=== PATIENT | male | born 1950 | race Caucasian/White ===

== ENCOUNTER 2021-10-08 15:59 | Inpatient (IN) | payer MEDICARE ==
[2021-10-08] MEDS ORDERED: Ondansetron PF 4 MG/2 ML Vial IVP PRN (21:57)
[2021-10-08 22:43] VITALS: BMI 29.9
[2021-10-08] MEDS: Heparin 10,000 UNITS/ 10 ML VIAL SLOW IVP SCH (23:52)
[2021-10-08] MEDS: Heparin 25,000 units/D5W 500 ML IVPB SCH (23:52)
[2021-10-09] MEDS: Nitroglycerin 0.4 MG TAB (25 Tab Bottle) SL PRN ×2 (01:10→01:16)
[2021-10-09] MEDS: Nitroglycerin 2% Ointment 1 INCH/1 GM Packet TOP SCH ×3 (01:37→18:02)
[2021-10-09] MEDS ORDERED: Communication Order-Pharmacy FS SCH (07:43)
[2021-10-09] MEDS ORDERED: Morphine 2 MG/ML VIAL SLOW IVP PRN (07:44)
[2021-10-09 07:49] LABS: #Eosinphils 0.2 thou/uL (0.0-0.7); #Lymphocytes 1.7 thou/uL (1.20-3.40); #Monocytes 0.9 thou/uL (0.11-0.59); #Neutrophils 6.3 thou/uL (1.40-6.50); %Basophils 0.4 % (0.0-1.0); %Eosinophils 1.8 % (0.0-10.0); %Lymphocytes 18.6 % (21.0-51.0); %Monocytes 9.5 % (0.0-10.0); %Neutrophils 69.8 % (42.0-75.0); Hemoglobin 13.8 g/dL (14.0-18.0); Mean Corpuscular HGB CONC 33.6 g/dL (32.0-36.0); Mean Corpuscular Hemoglobin 33.8 pg (27.0-31.0); Mean Platelet Volume 9.4 fL (7.4-10.4); Platelet Count 149 thou/uL (130-400); RBC Distribution Width 11.6 % (11.5-14.5); Red Blood Cell (RBC) Count 4.08 mill/uL (4.70-6.10); White Blood Cell (WBC) Count 9.1 thou/uL (4.8-10.8)
[2021-10-09] MEDS: Acetaminophen 325 MG TAB PO PRN ×3 (07:49→21:10)
[2021-10-09 08:11] LABS: Anion Gap 12 mmol/L (10-20); BUN (Urea Nitrogen) 15 mg/dL (8.4-25.7); Calc. Creatinine Clearance 91 mL/min (70-130); Calcium 9.2 mg/dL (7.8-10.44); Carbon Dioxide 28 mmol/L (23-31); Chloride 104 mmol/L (98-107); Cholesterol 239 mg/dl (< 200 Desired); Estimated GFR 76; Glucose 107 mg/dL (83-110); HDL Cholesterol 40 mg/dL (>60 Neg Risk); LDL Cholesterol, Calculated 152 mg/dL; Potassium 4.5 mmol/L (3.5-5.1); Sodium 139 mmol/L (136-145); Triglycerides 236 mg/dL (Less than 150)
[2021-10-09] MEDS: Heparin 10,000 UNITS/ 10 ML VIAL SLOW IVP SCH (09:07)
[2021-10-09] MEDS ORDERED: Aspirin 81 mg Enteric Coated Tablet PO SCH (10:15)
[2021-10-09 15:48] LABS: PTT 76.1 sec (22.9-36.1)
[2021-10-09] MEDS ORDERED: Atorvastatin Calcium 40 MG TAB PO SCH (21:00)
[2021-10-09] MEDS: Heparin 25,000 units/D5W 500 ML IVPB SCH (21:10)
[2021-10-09 22:18] LABS: Prothrombin Time 13.1 sec (12.0-14.7)
[2021-10-09 22:20] LABS: PTT 84.4 sec (22.9-36.1)
[2021-10-10] MEDS: Nitroglycerin 2% Ointment 1 INCH/1 GM Packet TOP SCH ×2 (02:47→07:49)
[2021-10-10 04:48] LABS: #Basophils 0.1 thou/uL (0.0-0.2); #Eosinphils 0.2 thou/uL (0.0-0.7); #Lymphocytes 2.4 thou/uL (1.20-3.40); #Monocytes 0.7 thou/uL (0.11-0.59); #Neutrophils 4.8 thou/uL (1.40-6.50); %Basophils 0.8 % (0.0-1.0); %Eosinophils 2.1 % (0.0-10.0); %Lymphocytes 29.2 % (21.0-51.0); %Neutrophils 58.9 % (42.0-75.0); Hemoglobin 13.3 g/dL (14.0-18.0); Mean Corpuscular HGB CONC 34.2 g/dL (32.0-36.0); Mean Corpuscular Hemoglobin 34.7 pg (27.0-31.0); Mean Platelet Volume 9.5 fL (7.4-10.4); Platelet Count 147 thou/uL (130-400); RBC Distribution Width 11.7 % (11.5-14.5); Red Blood Cell (RBC) Count 3.84 mill/uL (4.70-6.10); White Blood Cell (WBC) Count 8.2 thou/uL (4.8-10.8)
[2021-10-10 04:53] LABS: Prothrombin Time 13.1 sec (12.0-14.7)
[2021-10-10 04:55] LABS: PTT 104.5 sec (22.9-36.1)
[2021-10-10 05:09] LABS: Anion Gap 13 mmol/L (10-20); BUN (Urea Nitrogen) 16 mg/dL (8.4-25.7); Calc. Creatinine Clearance 101 mL/min (70-130); Calcium 9.2 mg/dL (7.8-10.44); Carbon Dioxide 27 mmol/L (23-31); Chloride 104 mmol/L (98-107); Estimated GFR 86; Glucose 91 mg/dL (83-110); Sodium 140 mmol/L (136-145)
[2021-10-10] MEDS ORDERED: PHENYLEPHRINE-NS 100 MCG/ML 10 ML SYRINGE ONE ×2 (07:13→08:02)
[2021-10-10] MEDS ORDERED: Albumin 5% 500 ML ONE (07:14)
[2021-10-10] MEDS ORDERED: fentaNYL Citrate/PF 100 MCG/2 ML SYRINGE ONE (08:01)
[2021-10-10] MEDS ORDERED: Midazolam HCl 5 mg/5 ml Vial ONE (08:01)
[2021-10-10] MEDS ORDERED: Phenylephrine 10 MG/ML VIAL ONE (08:02)
[2021-10-10] MEDS ORDERED: Aspirin 81 mg Enteric Coated Tablet PO SCH (09:00)
[2021-10-10] MEDS ORDERED: Heparin 10,000 UNITS/1 ML VIAL 30,000 UNITS in Sodium Chloride 0.9% 1,000 ML FS SCH (09:00)
[2021-10-10] MEDS ORDERED: Sodium Chloride 0.9% 100 ML ONE (09:34)
[2021-10-10] MEDS ORDERED: CEFAZOLIN 2 GM VIAL ONE (09:34)
[2021-10-10] MEDS ORDERED: Magnesium Sulfate 1 GM/2 ML VIAL ONE (09:40)
[2021-10-10] MEDS ORDERED: Sodium Bicarb 50 MEQ/50 ML Abboject 8.4% SYRINGE ONE (09:40)
[2021-10-10] MEDS ORDERED: Calcium Chloride 1 GM/10 ML Abboject SYRINGE ONE (09:40)
[2021-10-10] MEDS ORDERED: Cardioplegic Soln 1,000 ML BAG ONE (09:40)
[2021-10-10] MEDS ORDERED: Protamine Sulfate 250 MG/25 ML VIAL ONE (09:40)
[2021-10-10] MEDS ORDERED: Heparin 30,000 units/30 ml VIAL ONE (09:40)
[2021-10-10] MEDS ORDERED: Lidocaine 1% PF 5 ML VIAL ONE (09:40)
[2021-10-10] MEDS ORDERED: Rocuronium Bromide 10 MG/ML (10ML VIAL) ONE (09:40)
[2021-10-10] MEDS ORDERED: Mannitol 12.5 GM/50 ML ONE (09:40)
[2021-10-10] MEDS ORDERED: Vecuronium 10 MG VIAL ONE (09:40)
[2021-10-10] MEDS ORDERED: Papaverine 60 MG/2 ML VIAL ONE (09:40)
[2021-10-10] MEDS ORDERED: PROPOFOL 200 MG/20 ML VIAL ONE (09:40)
[2021-10-10] MEDS ORDERED: Thrombin 5000 UNITS/5 ML VIAL ONE (09:40)
[2021-10-10] MEDS ORDERED: Heparin 5,000 UNITS/ML VIAL ONE (09:40)
[2021-10-10] MEDS ORDERED: Aminocaproic Acid 5 GM/20 ML VIAL ONE (09:40)
[2021-10-10] MEDS ORDERED: Lidocaine 2% PF 100 mg/5 ml Syringe ONE (09:40)
[2021-10-10 11:06] LABS: Actual Bicarbonate (HCO3a) 24.5 mEq/L (22-28); Base Excess (BEa) -0.2 mEq/L (-2.0 to +3.0); CO2 Tension 40.1 mmHg (35.0-45.0); Calcium, Ionized (arterial) 1.18 mmol/L (1.12-1.30); Carboxyhemoglobin (COHb) 0.5 gm% (0.0-3.0); Hemoglobin (Hb) 13.4 g/dL (14.0-18.0); O2 Tension (PaO2), arterial 260.6 mmHg (> 70.0); Potassium - ABG Lab 3.96 mmol/L (3.70-5.30); Puncture Site Arterial Line
[2021-10-10] MEDS ORDERED: niCARdipine 25 MG/10 ML VIAL ONE (11:23)
[2021-10-10] MEDS ORDERED: ceFAZolin 2 GM/Dextrose 50 ML 2 GM in Premix Bag 1 BAG IVPB SCH (13:39)
[2021-10-10] MEDS ORDERED: Nitroglycerin 50 MG/250 ML BOT 250 ML IVPB PRN (13:39)
[2021-10-10] MEDS ORDERED: Mag-Al 1200 mg/1200 mg/30 ML UDCUP PO PRN (13:39)
[2021-10-10] MEDS ORDERED: Bisacodyl 5 MG TAB PO PRN (13:39)
[2021-10-10] MEDS ORDERED: Bisacodyl 10 MG SUPP PR PRN (13:39)
[2021-10-10] MEDS ORDERED: Hetastarch 6% 500 ML 500 ML IVPB PRN (13:39)
[2021-10-10] MEDS ORDERED: Potassium Chloride 20 MEQ/100 ML PREMIX BAG IVPB PRN (13:39)
[2021-10-10] MEDS ORDERED: Acetaminophen 325 MG TAB PO PRN (13:39)
[2021-10-10] MEDS ORDERED: NOREPINEPHRINE 8 MG/250 ML-D5W 250 ML IVPB PRN (13:39)
[2021-10-10] MEDS ORDERED: DOPamine 400 MG/D5W 250 ML 250 ML IVPB PRN (13:39)
[2021-10-10] MEDS ORDERED: Morphine 2 MG/ML VIAL SLOW IVP PRN (13:39)
[2021-10-10] MEDS ORDERED: Fentanyl 100 MCG/2 ML VIAL SLOW IVP PRN (13:39)
[2021-10-10] MEDS ORDERED: niCARdipine 25 MG in Sodium Chloride 0.9% 250 ML 250 ML IVPB PRN (13:39)
[2021-10-10] MEDS ORDERED: Post-Op Insulin Drip Protocol IVPB ONE (13:39)
[2021-10-10] MEDS ORDERED: Guaifenesin DM 100-10/5 ML UDCUP PO PRN (13:39)
[2021-10-10] MEDS ORDERED: Ondansetron PF 4 MG/2 ML Vial IVP PRN (13:39)
[2021-10-10] MEDS ORDERED: hydrALAZINE 20 MG/ML VIAL SLOW IVP PRN (13:39)
[2021-10-10] MEDS ORDERED: Albumin 5% 250 ML ONE ×2 (13:42→13:44)
[2021-10-10] MEDS: Lactated Ringer's 1,000 ML IV SCH ×2 (13:45→23:53)
[2021-10-10 13:48] LABS: #Basophils 0.1 thou/uL (0.0-0.2); #Eosinphils 0.1 thou/uL (0.0-0.7); #Lymphocytes 1.6 thou/uL (1.20-3.40); #Monocytes 0.9 thou/uL (0.11-0.59); %Basophils 0.4 % (0.0-1.0); %Eosinophils 0.4 % (0.0-10.0); %Lymphocytes 9.2 % (21.0-51.0); %Monocytes 5.3 % (0.0-10.0); %Neutrophils 84.7 % (42.0-75.0); Hemoglobin 12.4 g/dL (14.0-18.0); Mean Corpuscular HGB CONC 33.5 g/dL (32.0-36.0); Mean Corpuscular Hemoglobin 34.2 pg (27.0-31.0); Mean Platelet Volume 9.1 fL (7.4-10.4); Platelet Count 112 thou/uL (130-400); RBC Distribution Width 11.7 % (11.5-14.5); Red Blood Cell (RBC) Count 3.62 mill/uL (4.70-6.10); White Blood Cell (WBC) Count 17.8 thou/uL (4.8-10.8)
[2021-10-10] MEDS ORDERED: DOPamine 400 MG/D5W 250 ML 250 ML ONE (13:49)
[2021-10-10 14:10] LABS: Band 18 % (5-11); Lymphocytes 9 % (21-51); MDiff Complete? YES; Macrocytosis SLIGHT = 6-15 cells (100X) (0-5/hpf); Monocytes 4 % (0-10); Neutrophil 69 % (42-75); Platelet Morphology Comment Appears Decreased; Polychromasia SLIGHT = 2-3 cells (100X) (0-2/hpf)
[2021-10-10 14:11] LABS: Anion Gap 12 mmol/L (10-20); BUN (Urea Nitrogen) 14 mg/dL (8.4-25.7); Calc. Creatinine Clearance 106 mL/min (70-130); Calcium 7.8 mg/dL (7.8-10.44); Carbon Dioxide 23 mmol/L (23-31); Chloride 108 mmol/L (98-107); Estimated GFR 92; Glucose 124 mg/dL (83-110); Potassium 4.4 mmol/L (3.5-5.1); Sodium 139 mmol/L (136-145)
[2021-10-10 14:15] LABS: Actual Bicarbonate (HCO3a) 19.9 mEq/L (22-28); Base Excess (BEa) -5.5 mEq/L (-2.0 to +3.0); CO2 Tension 38.6 mmHg (35.0-45.0); Calcium, Ionized (arterial) 1.06 mmol/L (1.12-1.30); Carboxyhemoglobin (COHb) 0.1 gm% (0.0-3.0); Hemoglobin (Hb) 10.9 g/dL (14.0-18.0); O2 Tension (PaO2), arterial 80.6 mmHg (> 70.0); Potassium - ABG Lab 3.96 mmol/L (3.70-5.30); pH, Arterial 7.33 (7.35-7.45)
[2021-10-10 14:16] LABS: INR-International Normal Ratio 1.2; PTT 33.6 sec (22.9-36.1); Prothrombin Time 15.3 sec (12.0-14.7)
[2021-10-10] MEDS ORDERED: Dextrose 50% Abboject 50 ML SYRINGE SLOW IVP PRN (14:45)
[2021-10-10] MEDS ORDERED: Insulin Regular 300 UNITS/3 ML VIAL SC PRN (14:45)
[2021-10-10] MEDS ORDERED: Dextrose 5% in Water 1,000 ML IV PRN (14:45)
[2021-10-10] MEDS ORDERED: HUMULIN R 100 UNITS in Sodium Chloride 0.9% 100 ML IVPB SCH (14:45)
[2021-10-10] MEDS ORDERED: Potassium Chloride 20 MEQ in Premix Bag 1 BAG IVPB PRN (14:48)
[2021-10-10 15:28] LABS: Actual Bicarbonate (HCO3a) 20.6 mEq/L (22-28); Base Excess (BEa) -5.5 mEq/L (-2.0 to +3.0); CO2 Tension 42.3 mmHg (35.0-45.0); Calcium, Ionized (arterial) 1.09 mmol/L (1.12-1.30); Carboxyhemoglobin (COHb) 0.4 gm% (0.0-3.0); Hemoglobin (Hb) 12.1 g/dL (14.0-18.0); O2 Tension (PaO2), arterial 72.4 mmHg (> 70.0); Potassium - ABG Lab 4.09 mmol/L (3.70-5.30); pH, Arterial 7.31 (7.35-7.45)
[2021-10-10 15:30] LABS: Puncture Site Arterial Line
[2021-10-10 15:31] LABS: ALV-art Gradient 159.925 mmHg (0-20); Puncture Site Arterial Line
[2021-10-10] MEDS: Fentanyl 100 MCG/2 ML VIAL SLOW IVP PRN ×3 (15:56→20:19)
[2021-10-10] MEDS: Ketorolac Tromethamine 30 MG/ML VIAL IVP SCH ×2 (16:24→23:53)
[2021-10-10] MEDS: HYDROcodone/Acetaminophen 5/325 mg Tablet PO PRN ×3 (16:25→23:54)
[2021-10-10] MEDS: CEFAZOLIN 2 GM in Sodium Chloride 0.9% 100 ML IVPB SCH (17:56)
[2021-10-10 18:58] LABS: Hemoglobin 10.5 g/dL (14.0-18.0)
[2021-10-10 19:14] LABS: Potassium 4.3 mmol/L (3.5-5.1)
[2021-10-10] MEDS: Famotidine/PF 20 mg/2ml Vial SLOW IVP SCH (20:26)
[2021-10-11] MEDS: CEFAZOLIN 2 GM in Sodium Chloride 0.9% 100 ML IVPB SCH ×2 (02:03→09:56)
[2021-10-11] MEDS: HYDROcodone/Acetaminophen 5/325 mg Tablet PO PRN ×4 (04:05→22:39)
[2021-10-11 04:50] LABS: #Lymphocytes 0.6 thou/uL (1.20-3.40); #Neutrophils 9.2 thou/uL (1.40-6.50); %Basophils 0.2 % (0.0-1.0); %Eosinophils 0.1 % (0.0-10.0); %Lymphocytes 5.3 % (21.0-51.0); %Monocytes 9.5 % (0.0-10.0); %Neutrophils 84.9 % (42.0-75.0); Hemoglobin 10.3 g/dL (14.0-18.0); Mean Corpuscular HGB CONC 33.7 g/dL (32.0-36.0); Mean Corpuscular Hemoglobin 34.4 pg (27.0-31.0); Mean Platelet Volume 9.7 fL (7.4-10.4); Platelet Count 93 thou/uL (130-400); RBC Distribution Width 11.6 % (11.5-14.5); Red Blood Cell (RBC) Count 2.98 mill/uL (4.70-6.10); White Blood Cell (WBC) Count 10.8 thou/uL (4.8-10.8)
[2021-10-11 05:01] LABS: Anion Gap 10 mmol/L (10-20); BUN (Urea Nitrogen) 18 mg/dL (8.4-25.7); Calc. Creatinine Clearance 116 mL/min (70-130); Calcium 7.8 mg/dL (7.8-10.44); Carbon Dioxide 23 mmol/L (23-31); Chloride 108 mmol/L (98-107); Estimated GFR 94; Glucose 124 mg/dL (83-110); Sodium 137 mmol/L (136-145)
[2021-10-11] MEDS: Ketorolac Tromethamine 30 MG/ML VIAL IVP SCH ×3 (05:30→17:57)
[2021-10-11] MEDS: Fentanyl 100 MCG/2 ML VIAL SLOW IVP PRN (07:15)
[2021-10-11] MEDS: Famotidine/PF 20 mg/2ml Vial SLOW IVP SCH (07:18)
[2021-10-11] MEDS: Lactated Ringer's 1,000 ML IV SCH (07:18)
[2021-10-11] MEDS: Magnesium 2 GM/50 ML(in water) 2 GM in Premix Bag 1 BAG IVPB SCH (07:18)
[2021-10-11] MEDS ORDERED: Aspirin Chewable 81 MG TAB PO SCH (09:00)
[2021-10-11] MEDS ORDERED: Insulin Glargine 30 UNITS/0.3 ML VIAL SC PRN (14:40)
[2021-10-11] MEDS ORDERED: Clopidogrel Bisulfate 75 MG TAB PO SCH (18:15)
[2021-10-12] MEDS: Ketorolac Tromethamine 30 MG/ML VIAL IVP SCH ×4 (00:12→17:20)
[2021-10-12] MEDS: HYDROcodone/Acetaminophen 5/325 mg Tablet PO PRN ×2 (04:13→09:54)
[2021-10-12 05:40] LABS: Anion Gap 9 mmol/L (10-20); BUN (Urea Nitrogen) 17 mg/dL (8.4-25.7); Calc. Creatinine Clearance 115 mL/min (70-130); Calcium 7.9 mg/dL (7.8-10.44); Carbon Dioxide 26 mmol/L (23-31); Chloride 104 mmol/L (98-107); Estimated GFR 92; Glucose 113 mg/dL (83-110); Potassium 4.3 mmol/L (3.5-5.1); Sodium 135 mmol/L (136-145)
[2021-10-12 05:47] LABS: #Eosinphils 0.1 thou/uL (0.0-0.7); #Lymphocytes 1.1 thou/uL (1.20-3.40); #Monocytes 1.1 thou/uL (0.11-0.59); #Neutrophils 9.8 thou/uL (1.40-6.50); %Basophils 0.2 % (0.0-1.0); %Eosinophils 0.7 % (0.0-10.0); %Lymphocytes 9.3 % (21.0-51.0); %Monocytes 9.2 % (0.0-10.0); %Neutrophils 80.5 % (42.0-75.0); Mean Corpuscular HGB CONC 33.5 g/dL (32.0-36.0); Mean Corpuscular Hemoglobin 34.1 pg (27.0-31.0); Mean Platelet Volume 9.9 fL (7.4-10.4); Platelet Count 97 thou/uL (130-400); RBC Distribution Width 11.4 % (11.5-14.5); Red Blood Cell (RBC) Count 2.92 mill/uL (4.70-6.10); White Blood Cell (WBC) Count 12.2 thou/uL (4.8-10.8)
[2021-10-12] MEDS ORDERED: Mineral Oil ENEMA PR PRN (07:32)
[2021-10-12] MEDS ORDERED: Nitroglycerin 0.4 MG TAB (25 Tab Bottle) SL PRN (07:32)
[2021-10-12] MEDS: Aspirin 325 mg Enteric Coated Tablet PO SCH (09:50)
[2021-10-12] MEDS: Famotidine 20 MG TAB PO SCH ×2 (09:51→20:32)
[2021-10-12] MEDS: Clopidogrel Bisulfate 75 MG TAB PO SCH (09:51)
[2021-10-12] MEDS: Enoxaparin Sodium 40 MG/0.4 ML SYRINGE SC SCH (09:51)
[2021-10-12] MEDS: Magnesium 2 GM/50 ML(in water) 2 GM in Premix Bag 1 BAG IVPB SCH (09:51)
[2021-10-12] MEDS: Carvedilol 3.125 MG TAB PO SCH (17:20)
[2021-10-12] MEDS: Atorvastatin Calcium 40 MG TAB PO SCH (20:31)
[2021-10-12] MEDS ORDERED: Atorvastatin Calcium 20 MG TAB PO SCH (21:00)
[2021-10-13] MEDS: Ketorolac Tromethamine 30 MG/ML VIAL IVP SCH ×4 (00:16→17:30)
[2021-10-13] MEDS: Carvedilol 3.125 MG TAB PO SCH ×2 (07:49→17:08)
[2021-10-13] MEDS: Famotidine 20 MG TAB PO SCH ×2 (07:50→20:58)
[2021-10-13] MEDS: Clopidogrel Bisulfate 75 MG TAB PO SCH (07:50)
[2021-10-13] MEDS: Aspirin 325 mg Enteric Coated Tablet PO SCH (07:50)
[2021-10-13] MEDS: HYDROcodone/Acetaminophen 5/325 mg Tablet PO PRN (08:18)
[2021-10-13] MEDS ORDERED: Amiodarone 150 MG in Dextrose 5% in Water 100 ML IVPB SCH (08:30)
[2021-10-13] MEDS: Enoxaparin Sodium 40 MG/0.4 ML SYRINGE SC SCH (08:35)
[2021-10-13] MEDS: Amiodarone 450 MG in Dextrose 5% in Water 250 ML IVPB SCH ×2 (09:11→17:08)
[2021-10-13] MEDS: Amiodarone 200 MG TAB PO SCH (20:57)
[2021-10-13] MEDS: Atorvastatin Calcium 40 MG TAB PO SCH (20:58)
[2021-10-14] MEDS ORDERED: Furosemide 40 MG TAB PO SCH (07:30)
[2021-10-14] MEDS ORDERED: Potassium Chloride 10 MEQ TAB PO SCH (08:00)
[2021-10-14] MEDS: Carvedilol 3.125 MG TAB PO SCH (09:22)
[2021-10-14] MEDS: Amiodarone 200 MG TAB PO SCH (09:22)
[2021-10-14] MEDS: Famotidine 20 MG TAB PO SCH (09:23)
[2021-10-14] MEDS: Clopidogrel Bisulfate 75 MG TAB PO SCH (09:23)
[2021-10-14] MEDS: Aspirin 325 mg Enteric Coated Tablet PO SCH (09:23)
[2021-10-14 16:11] VITALS: BP 131/71; TEMP 97.7
== END 2021-10-14 15:45 | disposition home or self-care (01) | DRG 236 ==
LOC: 2NO 15:59 → CCU 10-10 09:00 → 2NO 10-13 18:10
PROVIDERS: ADMIT Thoracic Surgery (Cardiothoracic Vascular Surgery); ATTEND Internal Medicine
PROC: 02100Z9 Bypass Coronary Artery, One Artery from Left Internal Mammary, Open Approach (ICD-10-PCS; principal; 2021-10-10)
PROC: 021109W Bypass Coronary Artery, Two Arteries from Aorta with Autologous Venous Tissue, Open Approach (ICD-10-PCS; 2021-10-10)
PROC: 06BQ0ZZ Excision of Left Saphenous Vein, Open Approach (ICD-10-PCS; 2021-10-10)
PROC: 5A1221Z Performance of Cardiac Output, Continuous (ICD-10-PCS; 2021-10-10)
PROC: 02L70ZK Occlusion of Left Atrial Appendage, Open Approach (ICD-10-PCS; 2021-10-10)
DX: I21.4 Non-ST elevation (NSTEMI) myocardial infarction (principal); I10 Essential (primary) hypertension; I25.110 Atherosclerotic heart disease of native coronary artery with unstable angina pectoris; Z20.822 Contact with and (suspected) exposure to COVID-19; E66.9 Obesity, unspecified; E78.2 Mixed hyperlipidemia; Z98.890 Other specified postprocedural states; Z79.899 Other long term (current) drug therapy; Z68.31 Body mass index [BMI] 31.0-31.9, adult
CPT/HCPCS: 36415; 36416; 36430; 71045; 80048; 80061; 82805; 84484; 85025; 85610; 85730; 86850; 86900; 86901; 93005; 93010; 93798; 94002; 94150; 94760; 97139; C1751; C1776; J0282; J0690; J1642; J1644; J1650; J1815; J1885; J2001; J2150; J2250; J2370; J2405; J2440; J2704; J2720; J3010; J3370; J3475; J3480; J3490; J7070; J7120; P9045; S0017; S0028

== ENCOUNTER 2024-03-19 21:49 | Emergency (ER) | payer MEDICARE, OTHER ==
[2024-03-19 22:57] LABS: #Basophils 0.04 10x3/uL (0.0-0.2); %Basophils 0.3 % (0.0-1.0); %Eosinophils 0.9 % (0.0-10.0); %Lymphocytes 10.3 % (21.0-51.0); %Monocytes 6.3 % (0.0-10.0); Hematocrit 42.9 % (42.0-52.0); Hemoglobin 15.1 g/dL (14.0-18.0); Mean Corpuscular HGB CONC 35.2 g/dL (32.0-36.0); Mean Corpuscular Hemoglobin 33.1 pg (27.0-31.0); Mean Corpuscular Volume 94.1 fL (78.0-98.0); Mean Platelet Volume 11.2 fL (7.4-10.4); Platelet Count 164 10x3/uL (130-400); RBC Distribution Width 12.2 % (11.5-14.5); Red Blood Cell (RBC) Count 4.56 mill/uL (4.70-6.10)
[2024-03-19 23:16] LABS: ALT (SGPT) 27 U/L (8-55); AST (SGOT) 23 U/L (5-34); Alkaline Phosphatase 56 U/L (40-110); Anion Gap 16 mmol/L (10-20); BUN (Urea Nitrogen) 22 mg/dL (8.4-25.7); Bilirubin, Total 0.5 mg/dL (0.2-1.2); Calc. Creatinine Clearance 0 mL/min (70-130); Calcium 9.3 mg/dL (7.8-10.44); Carbon Dioxide 22 mmol/L (23-31); Chloride 107 mmol/L (98-107); Estimated GFR 60; Globulin 2.9 g/dL (2.4-3.5); Glucose 95 mg/dL (83-110); Potassium 3.8 mmol/L (3.5-5.1); Protein, Total 6.9 g/dL (5.8-8.1); Sodium 141 mmol/L (136-145)
[2024-03-19 23:17] LABS: Acetaminophen Less than 10 mcg/mL (Less than 10); Alcohol 49.7 mg/dL (Less than 10); Lipase 20 U/L (8-78); Magnesium 2.3 mg/dL (1.6-2.6); Salicylate Less than 8.0 mg/dL (Less than 8.0)
[2024-03-19 23:23] LABS: Troponin I Less than 0.010 ng/mL (< 0.028)
== END 2024-03-20 00:06 | disposition home or self-care (01) ==
LOC: ERS 21:49
DX: R55 Syncope and collapse (principal); I10 Essential (primary) hypertension; Z95.1 Presence of aortocoronary bypass graft
CPT/HCPCS: 36415; 71045; 80053; 80307; 83605; 83690; 83735; 83880; 84484; 85025; 93005